=== PATIENT | male | born 1995 | race American Indian/Alaskan Native ===

== ENCOUNTER 2021-02-21 08:46 | Emergency (ER) | payer SELFPAY ==
[2021-02-21] MEDS ORDERED: MAGNESIUM SULFATE 2 GM/50 ML BAG IV ONE (08:55)
[2021-02-21] MEDS ORDERED: ALBUTEROL 2.5 MG/3 ML NEBU IH ONE (08:55)
[2021-02-21] MEDS ORDERED: methylPREDNISolone Sod Succinate 125 MG/2 ML INJ IV ONE (08:55)
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
[2021-02-21] MEDS: IPRATROPIUM 0.02% NEBU 2.5 ML IH ONE ×2 (09:19→09:21)
--- NOTE | 2021-02-21 10:36 | XRay Report ---
CHEST 1 VIEW INDICATION: dyspnea. COMPARISON: None FINDINGS: SUPPORT DEVICES: None. HEART: Within normal limits. LUNGS/PLEURA: Suboptimal inspiratory effort with minimal streaky left basilar airspace disease. Other cormier clear lungs. There is suggestion of mediastinal adenopathy with bilateral hilar and right paratr acheal soft tissue prominence. Consider follow-up CT chest with contrast for further evaluation. ADDITIONAL FINDINGS: None. IMPRESSION: 1. Lung findings as above. Signer Name: Jaya Pimentel MD Signed: 02/21/2021 10:32 AM Workstation Name: [id number]
[2021-02-21 10:39] LABS: Basophils % (Auto) 0.2 % (0.0-1.8); Eosinophils % (Auto) 0.3 % (0.0-4.3); Hemoglobin 16.8 gm/dl (11.8-15.2); Lymphocytes # (Auto) 1.1 K/mm3 (1.2-5.4); Lymphocytes % (Auto) 16.9 % (13.4-35.0); Mean Corpuscular HGB Conc 33 % (32-34); Mean Corpuscular Volume 96 fl (84-94); Monocytes # (Auto) 0.3 K/mm3 (0.0-0.8); Monocytes % (Auto) 4.5 % (0.0-7.3); Platelet Count 205 K/mm3 (140-440); Red Cell Distribution Width 13.6 % (13.2-15.2)
[2021-02-21 10:59] LABS: BUN/Creatinine Ratio 14; Blood Urea Nitrogen 13 mg/dL (9-20); Calcium 9.2 mg/dL (8.4-10.2); Hemolysis Index 9
[2021-02-21] MEDS ORDERED: IPRATROPIUM/ALBUTEROL SULFATE 3 ML AMPUL.NEB IH ONE (11:38)
--- NOTE | 2021-02-21 12:53 | Cat Scan Report ---
CTA chest with contrast INDICATION : abnormal chest radiograph wheezing SEBASTIAN COUGH OMNIPAQUE 350 100ML. TECHNIQUE: Axial imaging performed through the chest, with contrast bolus timing set to maximize opa cification of the pulmonary arteries. 3-plane MIP reformatted images were obtained. All CT scans at this location are performed using CT dose reduction for ALARA by means of automated exposure control. 100 mL of intravenous contrast administered. COMPARISON: Chest x-ray from today FINDINGS: Bolus/PTE: Contrast bolus timing is adequate. No filling defect is present to suggest PTE. Mediastinum: Heart and great vessels appear normal. No pathologic mediastinal adenopathy. Lungs: Lungs are clear. Upper abdomen: Limited imaging of the upper abdomen shows nothing acute. Bones: Degenerative changes in the spine with nothing acute. IMPRESSION: Negative for PTE. Clear lungs. Signer Name: Jaya Pimentel MD Signed: 02/21/2021 12:49 PM Workstation Name: [id number]
[2021-02-21 13:49] VITALS: BP 123/64
== END 2021-02-21 13:49 | disposition home or self-care (01) ==
LOC: ED 08:46
DX: J20.9 Acute bronchitis, unspecified (principal); J45.909 Unspecified asthma, uncomplicated; Z79.899 Other long term (current) drug therapy
CPT/HCPCS: 36415; 71045; 71275; 80048; 85025; 94640; 96365; 96375; 99285; J2930; J3475; Q9967; 94644

== ENCOUNTER 2021-09-09 17:53 | Emergency (ER) | payer OTHER ==
--- NOTE | 2021-09-09 19:04 | Emergency Department Report ---
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 Patient was responding to a call when he performed 1 time [id number] CPR on a person who had overdosed on heroin. He denies any other exposure. He has no additional complaints. - Related Data Previous Rx's Medication Instructions Recorded Last Taken Type Albuterol Mdi (or & Nicu Only) 2 puff IH QID PRN #8.5 gram 02/21/21 Unknown Rx [ProAir HFA Inhaler] Doxycycline Hyclate 100 mg PO BID 7 Days #14 capsule 02/21/21 Unknown Rx Prednisone [predniSONE 10 mg 10 mg PO .TAPER #1 tab.ds.pk 02/21/21 Unknown Rx (6-Day Pack, 21 Tabs)] Dolutegravir [Tivicay] 50 mg PO DAILY 28 Days #28 tab 09/09/21 Unknown Rx Emtricitabine/Tenofovir (Tdf) 1 each PO DAILY 28 Days #28 tab 09/09/21 Unknown Rx [Emtricitabine-Tenofv 200-300Mg] Allergies Allergy/AdvReac Type Severity Reaction Status Date / Time No Known Allergies Allergy Verified 09/09/21 17:55 ED Review of Systems ROS: Stated complaint: CPR/MOUTH TO MOUTH EXPOSURE Other details as noted in HPI Constitutional: denies: chills, fever Eyes: denies: eye pain, eye discharge, vision change ENT: denies: ear pain, throat pain Respiratory: denies: cough, shortness of breath, wheezing Cardiovascular: denies: chest pain, palpitations Endocrine: no symptoms reported Gastrointestinal: denies: abdominal pain, nausea, diarrhea Genitourinary: denies: urgency, dysuria Musculoskeletal: denies: back pain, joint swelling, arthralgia Skin: denies: rash, lesions Neurological: denies: headache, weakness, paresthesias Psychiatric: denies: anxiety, depression Hematological/Lymphatic: denies: easy bleeding, easy bruising ED Past Medical Hx - Past Medical History Previous Medical History?: No - Surgical History Past Surgical History?: No - Social History Smoking Status: Never Smoker - Medications Home Medications: Home Medications Medication Instructions Recorded Confirmed Last Taken Type Albuterol Mdi (or & Nicu Only) 2 puff IH QID PRN #8.5 gram 02/21/21 Unknown Rx [ProAir HFA Inhaler] Doxycycline Hyclate 100 mg PO BID 7 Days #14 capsule 02/21/21 Unknown Rx Prednisone [predniSONE 10 mg 10 mg PO .TAPER #1 tab.ds.pk 02/21/21 Unknown Rx (6-Day Pack, 21 Tabs)] Dolutegravir [Tivicay] 50 mg PO DAILY 28 Days #28 tab 09/09/21 Unknown Rx Emtricitabine/Tenofovir (Tdf) 1 each PO DAILY 28 Days #28 tab 09/09/21 Unknown Rx [Emtricitabine-Tenofv 200-300Mg] ED Physical Exam - General Limitations: No Limitations General appearance: alert, in no apparent distress - Head Head exam: Present: atraumatic, normocephalic - Eye Eye exam: Present: normal appearance - ENT ENT exam: Present: mucous membranes moist - Neck Neck exam: Present: normal inspection - Respiratory Respiratory exam: Present: normal lung sounds bilaterally. Absent: respiratory distress - Cardiovascular Cardiovascular Exam: Present: regular rate, normal rhythm. Absent: systolic murmur, diastolic murmur, rubs, gallop - GI/Abdominal GI/Abdominal exam: Present: soft, normal bowel sounds - Rectal Rectal exam: Present: deferred - Extremities Exam Extremities exam: Present: normal inspection - Back Exam Back exam: Present: normal inspection - Neurological Exam Neurological exam: Present: alert, oriented X3 - Psychiatric Psychiatric exam: Present: normal affect, normal mood - Skin Skin exam: Present: warm, dry, intact, normal color. Absent: rash ED Course Vital Signs 09/09/21 18:11 O2 Sat by Pulse 100 Oximetry - Reevaluation(s) Reevaluation #1: 09/09/21 19:03 Patient's phone number is [phone]. ED Medical Decision Making - Lab Data Result diagrams: 09/09/21 18:49 - Medical Decision Making This is a 26-year-old male here with complaints of body fluid exposure. Patient performed [id number] CPR on a person that had overdosed on heroin. I plan to obtain basic labs including HIV hep C and hep B testing. The source patient has also consented to testing. Critical care attestation.: If time is entered above; I have spent that time in minutes in the direct care of this critically ill patient, excluding procedure time. ED Disposition Clinical Impression: Exposure to body fluid Is pt being admited?: No Does the pt Need Aspirin: No Condition: Stable Prescriptions: Emtricitabine/Tenofovir (Tdf) [Emtricitabine-Tenofv 200-300Mg] 1 each PO DAILY 28 Days #28 tab Dolutegravir [Tivicay] 50 mg PO DAILY 28 Days #28 tab
[2021-09-09 19:59] LABS: Alanine Aminotransferase 18 units/L (7-56); Albumin 4.7 g/dL (3.9-5); BUN/Creatinine Ratio 15; Blood Urea Nitrogen 15 mg/dL (9-20); Calcium 9.2 mg/dL (8.4-10.2); Hemolysis Index 10
== END 2021-09-09 19:10 | disposition home or self-care (01) ==
LOC: ED 17:53
DX: Z77.21 Contact with and (suspected) exposure to potentially hazardous body fluids (principal)
CPT/HCPCS: 36415; 80053; 86705; 86706; 86803; 87806; 99283